=== PATIENT | male | born 1935 | race Caucasian/White ===

== ENCOUNTER 2017-07-29 06:34 | Inpatient (IN) | payer OTHER, MEDICARE, BC ==
[~2017-07-29] VITALS: Ht 180.3 cm; Wt 79.5 kg
[2017-07-29 07:01] LABS: BASOPHILS % (AUTO) 0.2 % (0-1); EOSINOPHILS # (AUTO) 0.2 X10'3 (0-0.9); EOSINOPHILS % (AUTO) 1.7 % (0-6); HEMATOCRIT 48.6 % (42.0-52.0); HEMOGLOBIN 16.2 g/dl (14.0-17.9); LYMPHOCYTES # (AUTO) 1.4 X10'3 (1.1-4.8); MEAN CORPUSCULAR HEMOGLOBIN 31.3 PG (27.0-31.0); MEAN CORPUSCULAR HGB CONC 33.3 % (33.0-36.5); MEAN CORPUSCULAR VOLUME 93.9 FL (78-98); MEAN PLATELET VOLUME 7.3 FL (7.4-10.4); MONOCYTES # (AUTO) 0.8 X10'3 (0-0.9); MONOCYTES % (AUTO) 7.5 % (2-12); NEUTROPHILS # (AUTO) 7.7 X10'3 (1.8-7.7); NEUTROPHILS % (AUTO) 76.6 % (42-75); PLATELET COUNT 248 X10'3 (140-440); RED BLOOD COUNT 5.18 X10'6 (4.70-6.10); RED CELL DISTRIBUTION WIDTH 13.1 % (11.5-14.5); WHITE BLOOD COUNT 10.1 X10'3 (4.5-11.0)
[2017-07-29 07:09] LABS: PROTHROMBIN TIME 10.1 SECONDS (9.0-12.0)
[2017-07-29 07:15] LABS: ALANINE AMINOTRANSFERASE 22 U/L (12-78); ALBUMIN 3.8 G/DL (3.4-5.0); ALKALINE PHOSPHATASE 131 IU/L (46-116); ANION GAP 6 (8-16); ASPARTATE AMINO TRANSFERASE 21 U/L (10-37); BILIRUBIN,TOTAL 0.5 MG/DL (0.1-1.0); BLOOD UREA NITROGEN 13 MG/DL (7-18); BUN/CREATININE RATIO 12.4 (5.4-32.0); CALCIUM 9.4 MG/DL (8.5-10.1); CHLORIDE 105 MMOL/L (99-107); CREATININE 1.05 MG/DL (0.60-1.10); GLUCOSE 124 MG/DL (70-104); POTASSIUM 3.9 MMOL/L (3.5-5.1); SODIUM 145 MMOL/L (135-145); TOTAL CARBON DIOXIDE 34.1 MMOL/L (24-32); TOTAL PROTEIN 7.8 G/DL (6.4-8.2); eGFR 67 ML/MIN
[2017-07-29 08:10] LABS: ETHANOL < 0.010 GM/DL (0.0-0.010); LIPASE 111 U/L (73-393); MAGNESIUM 2.1 MG/DL (1.5-2.4)
[2017-07-29] MEDS ORDERED: normal saline 1000ML IV soln IVB ONE (08:10)
[2017-07-29] MEDS ORDERED: ondansetron/PF 4mg/2ml inj IV ONE (08:50)
[2017-07-29] MEDS: diatr meglu/diatrizoate 30ml oral sol.-(3 dose) bottle PO SCH ×3 (09:37→11:30)
[2017-07-29 12:10] LABS: CLARITY,URINE CLEAR (Clear); COLOR,URINE YELLOW (Yellow); GLUCOSE, URINE NEGATIVE (Neg); KETONES,URINE NEGATIVE (Neg); LEUKOCYTE ESTERASE ,URINE NEGATIVE (Neg); NITRITES, URINE NEGATIVE (Neg); OCCULT BLOOD,URINE NEGATIVE (Neg); PH,URINE 6.5 (4.8-8.0); PROTEIN,URINE NEGATIVE (Neg); UROBILINOGEN,URINE 0.2 E.U/dL (0.2-1.0)
[2017-07-29 12:25] LABS: UA COLLECTION TYPE URINAL
[2017-07-29] MEDS ORDERED: normal saline 1000ml 1,000 ML IV SCH (12:56)
[2017-07-29] MEDS ORDERED: mag hydrox/Alum hydrox/simeth 30ml oral suspension PO PRN (13:00)
[2017-07-29] MEDS ORDERED: acetaminophen 325mg tablet PO PRN (13:00)
[2017-07-29] MEDS ORDERED: magnesium hydroxide 30ml (MOM) UD suspension PO PRN (13:00)
[2017-07-29] MEDS ORDERED: enoxaparin 40mg/0.4ml syringe SUBCUT SCH (13:00)
[2017-07-29] MEDS ORDERED: ondansetron/PF 4mg/2ml inj IV PRN (13:00)
[2017-07-29] MEDS ORDERED: morphine 4 MG/ML inj SYRINge IV PRN (13:00)
[2017-07-29 15:30] VITALS: BP 168/85
[2017-07-29] MEDS ORDERED: temazepam 15mg capsule PO PRN (21:00)
[2017-07-29 22:32] VITALS: BP 159/77
== END 2017-07-29 23:05 | disposition left against medical advice (07) | DRG 390 ==
LOC: ER 06:35 → ED HOLD 12:56 → EDBEDREQ 14:23 → SUR 3N 15:13
PROVIDERS: ADMIT Hospitalist; ATTEND Hospitalist
DX: K56.609 Unspecified intestinal obstruction, unspecified as to partial versus complete obstruction (principal); F03.90 Unspecified dementia, unspecified severity, without behavioral disturbance, psychotic disturbance, mood disturbance, and anxiety; G89.29 Other chronic pain; M54.5 Low back pain; Z53.21 Procedure and treatment not carried out due to patient leaving prior to being seen by health care provider; Z85.038 Personal history of other malignant neoplasm of large intestine; Z87.891 Personal history of nicotine dependence
CPT/HCPCS: 36415; 74018; 74176; 80053; 80320; 81003; 83605; 83690; 83735; 84484; 85025; 85610; 87040; 96360; 99285; J1650; J2405; J7030; Q9963